=== PATIENT | female | born 1985 | race Caucasian/White ===

== ENCOUNTER 2023-07-20 03:33 | Emergency (ER) | payer BC, SELFPAY ==
[2023-07-20 03:36] VITALS: BP 108/79; PULSE 89; RESP 16; TEMP 36.8; O2SAT 97; BMI 27.4
--- NOTE | 2023-07-20 03:45 | PC.NURSE ---
Pt presents to ER for right sided facial / eye swelling Pt states she was stung on the right eyebrow by a bee yesterday Pt states she took 2 Benadryl at that time Pt woke up in the middle of the night with her right eye swollen almost all the way shut so she decided to come in Pt denies shortness of breath or chest pain No swelling noted to mouth, tongue, or lips
[2023-07-20 03:48] VITALS: O2SAT 100
--- NOTE | 2023-07-20 03:51 | ED_ITS ---
HPI - Allergic Reaction General Chief complaint: Allergic Reaction Stated complaint: RT EYE SWELLING Time Seen by Provider: 07/20/23 03:42 Source: patient Mode of arrival: walk-in History of Present Illness HPI narrative: This 37-year-old female presents for evaluation of right sided periorbital and facial swelling that extends down onto her neck. 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 She states she was wearing a hat yesterday because it was cold outside and something stung her in the right lateral eyebrow area. She states she didn't feel it initially but then it started to itch and swell. She took 2 Benadryl prior to going to bed and applied an ice pack but she woke up and her eye is puffy and swollen, she has mild redness on her cheek and right side of her neck. She is not having any difficulty breathing or swallowing. She does not have an ALLERGIC reaction involving anaphylaxis to bee stings. She has no generalized skin rash or hives. She has no nausea or vomiting. Related Data Home Medications Medication Instructions Recorded Confirmed No Known Home Medications 07/20/23 07/20/23 Allergies Allergy/AdvReac Type Severity Reaction Status Date / Time Penicillins Allergy Verified 07/20/23 03:40 Review of Systems ROS Status of ROS 10 or more systems reviewed and unremarkable except as noted in history and below [facility] Social History Smoking status: Current some day smoker Exam Narrative Exam Narrative: Nurses note and vital signs reviewed and patient is not hypoxic. General: The patient appears well and in no apparent distress. Patient is resting comfortably on cart. Skin: Warm, dry, no pallor noted. There is no rash noted. Head: Normocephalic, atraumatic Eye:There is mild swelling in the right periorbital area involving the eyebrow, upper eyelid and very minimally the lower eyelid, extraocular muscles are intact, there is no conjunctival injection or tearing noted. There is a small firm area at the right lateral eyebrow area where she was stung or bit by an insect or bee. No visible stinger in place Ears, Nose, Mouth, and Throat: oral mucosa is moist. Is no swelling of the tongue, uvula or pharyngeal soft tissues, no sign of active infection or local cellulitis Neck: No stridor noted, mild right-sided anterior cervical lymphadenopathy and tenderness, neck is otherwise supple Cardiovascular: Regular Rate and Rhythm Respiratory: Patient is in no distress, no accessory muscle use, lungs are clear to auscultation, no wheezing, rales or rhonchi Back: non-tender, no CVA tenderness bilaterally to percussion. Neurological: A&O x4, normal speech Psychiatric: Cooperative Constitutional Vital Signs, click to edit/add: Last Vital Signs Temp 98.2 F 07/20/23 03:36 Pulse 89 07/20/23 03:36 Resp 16 07/20/23 03:36 BP 108/79 07/20/23 03:36 Pulse Ox 100 07/20/23 03:48 O2 Del Method Room Air 07/20/23 03:48 Course Vital Signs Vital signs: Vital Signs Temperature 98.2 F 07/20/23 03:36 Pulse Rate 89 07/20/23 03:36 Respiratory Rate 16 07/20/23 03:36 Blood Pressure 108/79 07/20/23 03:36 Pulse Oximetry 97 07/20/23 03:36 Temperature 98.2 F 07/20/23 03:36 Pulse Rate 89 07/20/23 03:36 Respiratory Rate 16 07/20/23 03:36 Blood Pressure 108/79 07/20/23 03:36 Pulse Oximetry 100 07/20/23 03:48 Oxygen Delivery Method Room Air 07/20/23 03:48 MDM - Allergic Reaction MDM Narrative Medical decision making narrative: Otherwise healthy 37-year-old male presents for evaluation after she was stung by a bee or bit by an insect on the right lateral eyebrow yesterday afternoon while at work. She has some right periorbital swelling and swelling of the upper eyelid and minimally lower eyelid. There is no sign of anaphylaxis. She has normal vital signs. There is no diffuse skin rash. She is not having any swelling of the tongue, uvula or pharyngeal soft tissues. She did apply ice and take 2 Benadryl's prior to going to sleep last night but woke up with this swelling. 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 She was medicated in emergency department with 40 mg of IM Kenalog, 400 mg of oral Motrin for the itching and given 40 mg of Pepcid for the ALLERGIC reaction. She is otherwise hemodynamically stable for discharge and will be discharged home with a work note for today. Discharge Plan Discharge Chief Complaint: Allergic Reaction Clinical Impression: Bee sting reaction Patient Disposition: Home, Self-Care Time of Disposition Decision: 03:56 Condition: Good Prescriptions / Home Meds: No Action No Known Home Medications Instructions: Insect Bite or Sting (ED) Stand Alone Forms: Portal Instructions Referrals: NAKITA NORMAN [Primary Care Provider] - 1 week
[2023-07-20] MEDS: FAMOTIDINE 20 MG TABLET 40 MG PO (04:13)
[2023-07-20] MEDS: IBUPROFEN 400 MG TABLET PO (04:13)
[2023-07-20] MEDS: TRIAMCINOLONE ACETONIDE 40 MG/ML VIAL IM (04:14)
== END 2023-07-20 04:20 | disposition home or self-care (01) ==
PROVIDERS: Emergency Provider Emergency Medicine; PCP Internal Medicine
DX: T63.441A Toxic effect of venom of bees, accidental (unintentional), initial encounter (principal); F17.210 Nicotine dependence, cigarettes, uncomplicated
CPT/HCPCS: 96372; 99284

== ENCOUNTER 2024-02-29 21:01 | Outpatient (REF) | payer BC, SELFPAY | END 2024-02-29 21:02 | disposition home or self-care (01) | LOC: LAB 21:01 | PROVIDERS: PCP Internal Medicine; Visit Provider Physician Assistant | DX: Z01.419 Encounter for gynecological examination (general) (routine) without abnormal findings (principal) | CPT/HCPCS: 87624; G0145 ==

== ENCOUNTER 2025-09-23 19:57 | Outpatient (REF) | payer BC, SELFPAY ==
--- OUTSIDE RECORDS SUMMARY | 2025-09-23 15:40 | XMS_ITS | Encounter Summary ---
Author Organization [facility] Address [address] [facility], [place] [address] Care Team Providers Care White Shoe Ragger Name Role Phone Reji Underwood MD Primary Care Provider Reason for Visit * ReasonCommentsWell Women Visit Encounter Details DateTypeDepartmentCare Team (Latest Contact Info)Oatvricpcsd21/15/2025 3:40 PM ESTOffice Visit [facility] [address] [place] [address] Navid Baird DO [address] [place], [facility]11 Well woman exam with routine gynecological exam; Encounter for screening mammogram for malignant neoplasm of breast; Vaginal discharge; Urinary frequency; Urinary urgency Social History Tobacco UseTypesPacks/DayYears UsedDateSmoking Tobacco: Never Assessed CommentsUnknownSex and Gender InformationValueDate RecordedSex Assigned at Not on fileLegal OmkTiatnd42/15/2023 6:42 PM EDTGender IdentityNot on fileSexual OrientationNot on filedocumented as of this encounter Last Filed Vital Signs Vital SignReadingTime TakenCommentsBlood Pxgubkra555/7009/23/2025 4:09 PM EST Pulse--Temperature--Respiratory Rate--Oxygen Saturation--Inhaled Oxygen Concentration--Okiidm77.8 kg (173 lb 12 oz)09/23/2025 4:09 PM ESTHeight--Body Mass Index26.4205 4:08 PM EDTdocumented in this encounter Plan of Treatment DateTypeDepartmentCare Team (Latest Contact Info)Sjwzxudqfwl42/28/2026 4:00 PM ESTProcedure Visit [facility] [address] [place] [address] Navid Baird, DO [address] [place] [address] [place] [address] NameTypePriorityAssociated DiagnosesOrder ScheduleBilateral screening mammogram ImagingRoutine Encounter for screening mammogram for malignant neoplasm of breast Expected: 09/23/2025 (Approximate), Expires: 11/24/2026THIN PREP TIS PAP AND HR HPV DNAPathology and CytologyRoutine Well woman exam with routine gynecological exam Ordered: 09/23/2025Urine cultureMicrobiologyRoutine Urinary frequency Urinary urgency Ordered: 09/23/2025SURESWAB(R) ADVANCED VAGINITIS PLUS, TMAPathology and CytologyRoutine Vaginal discharge Ordered: 09/23/2025HLAMYDIA TRACHOMATIS (GENITO/STI)LabRoutine Vaginal discharge Ordered: 09/23/2025Neisseria gonorrhea DNA probe, directLabRoutine Vaginal discharge Ordered: 09/23/2025documented as of this encounter Procedures Procedure NamePriorityDate/TimeAssociated DiagnosisCommentsPOCT URINALYSIS MDWGUSJQSpxeshg50/15/2025 4:24 PM EST Urinary frequency Urinary urgency HPV/PAP COTEST, LIPUFXOVFdqqies21/22/2024 12:00 AM EDTdocumented in this encounter Results * (ABNORMAL) POCT urinalysis dipstick manually resulted (09/23/2025 4:24 PM EST) ComponentValueRef RangeTest MethodAnalysis TimePerformed AtPathologist SignatureColor, UAYellowClarity, UAClearGlucose, UANegativeNegative - 1999(110) ++++ mg/dLBilirubin, UANegativeNegative - 4(70) +++ mg/dLKetones, UA NegativeNegative - 160(16) ++++ mg/dLSpec Grav, UA1.0101 - 1.03Blood, UA PositiveNegative - 50 Suleman/mcLComment:TracepH, UA6.05 - 9Protein, UANegative Negative - 1999(20) ++++ mg/dLUrobilinogen, UA0.20.2 - 12 mg/dLLeukocytes, UA NegativeNegative - 500+++ Lydia/mcLNitrite, UANegativeNegative - Positive Specimen (Source)Anatomical Location / LateralityCollection Method / Volume Collection TimeReceived VzdgHdrbg79/15/2025 4:24 PM EST Narrative Authorizing ProviderResult TypeResult StatusCorey Oli DOPOINT OF CARE TEST ENTER/EDIT ORDERABLESFinal Result * HPV/PAP COTEST, EXTERNAL (02/29/2024 12:00 AM EDT) Narrative Authorizing ProviderResult TypeResult StatusAmy [place] PALAB CYTOLOGY ORDERABLES Final ResultPerforming OrganizationAddressCity/State/ZIP CodePhone Number EXTERNAL LAB documented in this encounter Visit Diagnoses Diagnosis Well woman exam with routine gynecological exam Routine gynecological examination Encounter for screening mammogram for malignant neoplasm of breast Vaginal discharge Leukorrhea, not specified as infective Urinary frequency Urinary urgency Urgency of urination documented in this encounter Care Teams Team MemberRelationshipSpecialtyStart DateEnd Date Reji Underwood MD [address] [place] [address], [address] [place] [address] PCP - GeneralFamily Medicine02/29/24documented as of this encounter
--- OUTSIDE RECORDS SUMMARY | 2025-09-23 20:03 | XMS_ITS | Clinical Summary ---
Author Organization [facility] Address [address] [place] [address] Care Team Providers Care Production Line Operator Name Role Phone Unavailable Primary Care Provider Unavailabl e Social History Tobacco UseTypesPacks/DayYears UsedDateSmoking Tobacco: Never Assessed CommentsUnknownSex and Gender InformationValueDate RecordedSex Assigned at Not on fileLegal ImfSafswv48/30/2022 12:16 AM EDTGender IdentityNot on file Sexual OrientationNot on file Plan of Treatment Not on file
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
--- OUTSIDE RECORDS SUMMARY | 2025-09-23 20:03 | XMS_ITS | Clinical Summary ---
Author Organization [facility] Address [address] [place] [address] Care Team Providers Care Outreach Professional Name Role Phone Reji Underwood MD Primary Care Provider [phone] Allergies Active AllergyReactionsCriticalityNoted NykdIaaupiauDvfexkzviplRvnjlqd64/22/2019 Unknown/ childhood Medications No known medications Encounters DateTypeDepartmentCare EimtAnnfqdehspe44/15/2025 3:40 PM ESTOffice Visit [facility] [place] [facility] [address] [place] [address] Navid Baird DO Well woman exam with routine gynecological exam; Encounter for screening mammogram for malignant neoplasm of breast; Vaginal discharge; Urinary frequency; Urinary kwotgmg5309/23/2025amboo flowsheet [facility] [place] [facility] [address] [place] [address] Navid Baird DO from Last 3 Months Social History Tobacco UseTypesPacks/DayYears UsedDateSmoking Tobacco: Never Assessed CommentsUnknownSex and Gender InformationValueDate RecordedSex Assigned at Not on fileLegal WguWexowj14/15/2023 6:42 PM EDTGender IdentityNot on fileSexual OrientationNot on file Last Filed Vital Signs Vital SignReadingTime TakenCommentsBlood Kltqaqse378/7009/23/2025 4:09 PM EST Pulse--Temperature--Respiratory Rate--Oxygen Saturation--Inhaled Oxygen Concentration--Zrssba35.8 kg (173 lb 12 oz)09/23/2025 4:09 PM HZXMkrals037.7 cm (5' 8 )02/29/2024 4:08 PM EDTBody Mass Index26.42002/29/2024 4:08 PM EDT Plan of Treatment DateTypeDepartmentCare Team (Latest Contact Info)Curtrtieuji95/28/2026 4:00 PM ESTProcedure Visit [facility] [place] [facility] [address] [facility] [place] [address] Navid Baird DO [address] [facility] [address] [place], [place] [id number] Procedures Procedure NamePriorityDate/TimeAssociated DiagnosisCommentsPOCT URINALYSIS IOFKNGAZQmixifc12/15/2025 4:24 PM EST Urinary frequency Urinary urgency from Last 3 Months Results * (ABNORMAL) POCT urinalysis dipstick manually resulted (09/23/2025 4:24 PM EST) ComponentValueRef RangeTest MethodAnalysis TimePerformed AtPathologist SignatureColor, UAYellowClarity, UAClearGlucose, UANegativeNegative - 2000(110) ++++ mg/dLBilirubin, UANegativeNegative - 4(70) +++ mg/dLKetones, UA NegativeNegative - 160(16) ++++ mg/dLSpec Grav, UA1.0101 - 1.03Blood, UA PositiveNegative - 50 Suleman/mcLComment:TracepH, UA6.05 - 9Protein, UANegative Negative - 2000(20) ++++ mg/dLUrobilinogen, UA0.20.2 - 12 mg/dLLeukocytes, UA NegativeNegative - 500+++ Lydia/mcLNitrite, UANegativeNegative - Positive Specimen (Source)Anatomical Location / LateralityCollection Method / Volume Collection TimeReceived OdxwVnync61/15/2025 4:24 PM EST Narrative Authorizing ProviderResult TypeResult StatusCorey Oli DOPOINT OF CARE TEST ENTER/EDIT ORDERABLESFinal Result from Last 3 Months Insurance Care Teams Team MemberRelationshipSpecialtyStart DateEnd Date Reji Underwood MD [address] [place] [address], [address] [place] [address] PCP - GeneralFamily Medicine02/29/24
--- OUTSIDE RECORDS SUMMARY | 2025-09-23 20:03 | XMS_ITS | Encounter Summary ---
Author Organization [facility] Address [address] [place] [address] Care Team Providers Care Band Master Name Role Phone Reji Underwood MD Primary Care Provider [phone] Encounter Details DateTypeDepartmentCare Team (Latest Contact Info)Nkclaicsxdd45/15/2025amboo flowsheet [facility] [address] [facility] [place] [address] Navid Baird DO [address] [facility] [address] [place], [facility]11 Social History Tobacco UseTypesPacks/DayYears UsedDateSmoking Tobacco: Never Assessed CommentsUnknownSex and Gender InformationValueDate RecordedSex Assigned at Not on fileLegal IzyMotgfg43/15/2023 6:42 PM EDTGender IdentityNot on fileSexual OrientationNot on filedocumented as of this encounter Plan of Treatment DateTypeDepartmentCare Team (Latest Contact Info)Xoorrwiyomz61/28/2026 4:00 PM ESTProcedure Visit [facility] [address] [facility] [place] [address] Navid Baird DO [address] [facility] [address] [place], [facility]11 documented as of this encounter Visit Diagnoses Not on filedocumented in this encounter Care Teams Team MemberRelationshipSpecialtyStart DateEnd Date Reji Underwood MD [address] [place] [address], [address] [place] [address] PCP - GeneralFamily Medicine02/29/24documented as of this encounter
== END 2025-09-23 19:58 | disposition home or self-care (01) ==
LOC: LAB 19:57
PROVIDERS: PCP Internal Medicine; Visit Provider Obstetrics & Gynecology
DX: Z01.419 Encounter for gynecological examination (general) (routine) without abnormal findings (principal)
CPT/HCPCS: 88175